=== PATIENT | female | born 1955 | race Hispanic/Latino ===

== ENCOUNTER 2025-01-12 16:02 | Emergency (ER) | payer MEDICARE | END 2025-01-12 17:24 | disposition home or self-care (01) | LOC: CSHERS 16:02 | DX: S09.90XA Unspecified injury of head, initial encounter (principal); I10 Essential (primary) hypertension; Z99.2 Dependence on renal dialysis; Z79.01 Long term (current) use of anticoagulants; W19.XXXA Unspecified fall, initial encounter; Y92.003 Bedroom of unspecified non-institutional (private) residence as the place of occurrence of the external cause | CPT/HCPCS: 70450 ==